=== PATIENT | female | born 1985 | race Caucasian/White ===

== ENCOUNTER 2024-05-03 12:47 | Outpatient (CLI) | payer OTHER | END 2024-05-03 13:26 | disposition home or self-care (01) | LOC: NST 12:47 | PROVIDERS: ATTEND Obstetrics & Gynecology Maternal & Fetal Medicine | DX: Z34.83 Encounter for supervision of other normal pregnancy, third trimester (principal) ==

== ENCOUNTER 2024-05-10 09:45 | Inpatient (IN) | payer OTHER ==
[~2024-05-10] VITALS: Ht 175.3 cm; Wt 2.7 kg
[2024-05-10 11:53] LABS: HEMATOCRIT 35.5 % (36.0-45.00); HEMOGLOBIN 12.3 g/dL (12.0-15.00); MEAN CELL VOLUME 98.4 fL (80.00-100.00); MEAN CORPUSCULAR HGB CONC 34.6 g/dl (32.0-36.0); PLATELET COUNT 256 K/uL (150-450); RED CELL DISTRIBUTION WIDTH 13.3 % (11.5-14.5)
[2024-05-10 12:34] LABS: INR < 0.93; PARTIAL THROMBOPLASTIN TIME 23.8 SECONDS (22.0-34.0); PROTHROMBIN TIME 9.9 SECONDS (9.0-11.5)
[2024-05-10 12:38] LABS: ALBUMIN 2.8 gm/dL (3.4-5.0); BILIRUBIN TOTAL 0.33 mg/dL (0.3-1.2); CALCIUM 9.2 mg/dL (8.5-10.1); CREATININE SERUM 0.56 mg/dL (0.55-1.02); GFR 120.52; GLOBULINA 3.7 G/DL (2.4-3.5); POTASSIUM 3.95 mEq/L (3.5-5.1); TOTAL PROTEIN 6.5 gm/dL (6.4-8.2)
[2024-05-14 12:17] VITALS: BP 122/62; BP 122/63
[2024-05-14] MEDS ORDERED: PRENATAL TABLE1 EAC1 PO (12:36)
[2024-05-14] MEDS ORDERED: CEFAZOLIN SODIUM 1,000 MG VIAL IV SCH ×2 (13:00→21:00)
[2024-05-14] MEDS ORDERED: CITRIC ACID/SODIUM CITRATE 30 ML BLIST.PACK PO SCH (13:00)
[2024-05-14] MEDS ORDERED: RINGERS SOLUTION,LACTATED 1,000 ML IV SCH ×2 (13:00→17:45)
[2024-05-14] MEDS ORDERED: ERYTHROMYCIN BASE OPHT 1GM EACH TUBE OP ONE (13:23)
[2024-05-14] MEDS ORDERED: OXYTOCIN 10 UNITS/ML VIAL ONE ×2 (13:23→17:39)
[2024-05-14] MEDS ORDERED: MORPHINE SULFATE 4 MG/ML VIAL IV ONE ×2 (15:30→16:30)
[2024-05-14] MEDS ORDERED: KETOROLAC TROMETHAMINE 30 MG VIAL ONE (15:55)
[2024-05-14] MEDS ORDERED: KETOROLAC TROMETHAMINE 30 MG VIAL IM ONE (16:00)
[2024-05-14] MEDS ORDERED: KETOROLAC TROMETHAMINE 30 MG VIAL IV ONE (16:00)
[2024-05-14] MEDS ORDERED: SIMETHICONE 125 MG CAPSULE PO SCH (17:37)
[2024-05-14] MEDS ORDERED: KETOROLAC TROMETHAMINE 30 MG VIAL IM NR (17:45)
[2024-05-14] MEDS ORDERED: OXYTOCIN 20 UNITS in RINGERS SOLUTION,LACTATED 1,000 ML IV SCH (17:45)
[2024-05-14] MEDS ORDERED: MORPHINE SULFATE 4 MG/ML CARTRIDGE IV PRN (17:45)
[2024-05-14 18:33] VITALS: BP 95/65
[2024-05-14 19:18] LABS: HEMATOCRIT 36.1 % (36.0-45.00); MEAN CELL VOLUME 97.4 fL (80.00-100.00); MEAN CORPUSCULAR HEMOGLOBIN 32.3 pg (27.00-32.0); MEAN CORPUSCULAR HGB CONC 33.2 g/dl (32.0-36.0); PLATELET COUNT 242 K/uL (150-450); RED CELL DISTRIBUTION WIDTH 13.3 % (11.5-14.5)
[2024-05-14 21:59] VITALS: BP 113/71; O2SAT 100
[2024-05-15] MEDS ORDERED: KETOROLAC TROMETHAMINE 10 MG TABLET PO SCH
[2024-05-15 00:32] VITALS: BP 113/69
[2024-05-15 06:57] LABS: HEMATOCRIT 32.7 % (36.0-45.00); HEMOGLOBIN 11.1 g/dL (12.0-15.00); MEAN CORPUSCULAR HEMOGLOBIN 33.3 pg (27.00-32.0); PLATELET COUNT 205 K/uL (150-450); RED BLOOD COUNT 3.34 M/uL (4.00-6.00); RED CELL DISTRIBUTION WIDTH 13.1 % (11.5-14.5)
[2024-05-15 08:08] VITALS: BP 108/71
[2024-05-15] MEDS ORDERED: OxyCODONE HCL/APAP UD (PERCOCET) PO PRN (09:00)
[2024-05-15 12:28] VITALS: BP 128/77
[2024-05-15 18:02] VITALS: BP 103/68
[2024-05-16] VITALS: BP 100/62
[2024-05-16 08:00] VITALS: BP 116/66
== END 2024-05-16 12:30 | disposition home or self-care (01) | DRG 787 ==
LOC: LDR 05-14 11:59 → OB/GYN 05-14 14:46 → LDR 05-21 09:45
PROVIDERS: ADMIT Obstetrics & Gynecology Maternal & Fetal Medicine; ATTEND Obstetrics & Gynecology Maternal & Fetal Medicine
PROC: 4A1HXCZ Monitoring of Products of Conception, Cardiac Rate, External Approach (ICD-10-PCS; 2024-05-14)
PROC: 10D00Z1 Extraction of Products of Conception, Low, Open Approach (ICD-10-PCS; principal; 2024-05-14 14:00)
DX: O34.211 Maternal care for low transverse scar from previous cesarean delivery (principal); O41.03X0 Oligohydramnios, third trimester, not applicable or unspecified; O32.1XX0 Maternal care for breech presentation, not applicable or unspecified; Z3A.38 38 weeks gestation of pregnancy; Z37.0 Single live birth

== ENCOUNTER 2024-05-10 11:46 | Outpatient (CLI) | payer OTHER | END 2024-05-10 11:50 | disposition home or self-care (01) | LOC: NST 11:46 | PROVIDERS: ATTEND Obstetrics & Gynecology Maternal & Fetal Medicine | DX: Z34.83 Encounter for supervision of other normal pregnancy, third trimester (principal) ==

== ENCOUNTER 2024-05-14 08:13 | Outpatient (CLI) | payer OTHER ==
[2024-05-14] MEDS ORDERED: PRENATAL TABLE1 EAC1 PO (12:36)
== END 2024-05-14 08:57 | disposition home or self-care (01) ==
LOC: NST 08:13
PROVIDERS: ATTEND Obstetrics & Gynecology Maternal & Fetal Medicine
DX: Z34.83 Encounter for supervision of other normal pregnancy, third trimester (principal)